=== PATIENT | female | born 1975 | race American Indian/Alaskan Native ===

== ENCOUNTER 2021-11-23 20:17 | Emergency (ER) | payer SELFPAY ==
[2021-11-24] MEDS ORDERED: IBUPROFEN 400 MG TAB PO ONE (00:14)
--- NOTE | 2021-11-24 00:15 | Emergency Department Report ---
ED General Adult HPI - General Chief complaint: Anxiety Stated complaint: Chest wall pain Time Seen by Provider: 11/24/21 00:00 Source: patient, RN notes reviewed Mode of arrival: Ambulatory Limitations: No Limitations - History of Present Illness Initial comments: The patient was evaluated in the emergency department for symptoms described in the history of present illness. He/she was evaluated in the context of the global COVID-19 pandemic, which necessitated consideration that the patient might be at risk for infection with the virus that causes COVID-19. Institutional protocols and algorithms that pertain to the evaluation of patients at risk for COVID-19 are in a state of rapid change based on information released by regulatory bodies including the CDC and federal and state organizations. These policies and algorithms were followed during the patient's care in the emergency department. Please note that these policies, procedures and recommendations changed on a rapid basis. The patient is a pleasant and cooperative 46-year-old female, who reports a distant history of hysterectomy, who reports that she is not , who has not delivered her given in the past 6 weeks, who also denies oral contraceptive use, and reports no DVT/PE risk factors. She recently relocated here from [place], and does not have a local primary care doctor. She also reports a history of anxiety. She presents to the ER today with complaints of anterior, left-sided chest wall pain, and inframammary pain, since 8:00 yesterday morning. The pain does not radiate to the back, arm or neck. There is no vomiting, diaphoresis or exertional shortness of breath. The pain increases with palpation, and decreases with rest. She denies additional injuries and complaints. She reports that she is COVID-19 vaccinated. Reports no significant [facility] family medical history -: days(s) Location: chest (As per history of present illness) Radiation: non-radiation Severity scale (0 -10): 2 Consistency: intermittent Improves with: none Worsens with: other (Palpation) - Related Data Allergies Allergy/AdvReac Type Severity Reaction Status Date / Time No Known Allergies Allergy Verified 11/23/21 21:17 ED Review of Systems ROS: Stated complaint: CHEST PAIN/ANXIETY/DIZZY Other details as noted in HPI Constitutional: denies: fever Eyes: denies: eye discharge ENT: denies: epistaxis Respiratory: denies: cough Cardiovascular: chest pain Gastrointestinal: denies: abdominal pain, nausea, vomiting Musculoskeletal: denies: back pain, myalgia Psychiatric: anxiety Hematological/Lymphatic: denies: easy bleeding ED Past Medical Hx - Past Medical History Hx Hypertension: Yes Additional medical history: Anxiety - Surgical History Past Surgical History?: Yes Additional Surgical History: Hyst Oct 2020 ED Physical Exam - General Limitations: No Limitations General appearance: alert, in no apparent distress - Head Head exam: Present: atraumatic, normocephalic - Eye Eye exam: Present: normal appearance, EOMI. Absent: nystagmus - ENT ENT exam: Present: normal exam, normal orophraynx, mucous membranes moist, normal external ear exam - Neck Neck exam: Present: normal inspection, full ROM. Absent: tenderness, meningismus - Respiratory Respiratory exam: Present: normal lung sounds bilaterally, chest wall tenderness (Chaperoned by Plastics Worker/medic Shawna), other (Patient provides oral consent for chest and breast examination). Absent: respiratory distress, wheezes, rales, rhonchi, stridor - Cardiovascular Cardiovascular Exam: Present: regular rate, normal rhythm, normal heart sounds. Absent: bradycardia, tachycardia, irregular rhythm, systolic murmur, diastolic murmur, rubs, gallop - GI/Abdominal GI/Abdominal exam: Present: soft. Absent: distended, tenderness, guarding, rebound, rigid, pulsatile mass - Extremities Exam Extremities exam: Present: normal inspection, full ROM, other (2+ pulses noted in the bilateral upper and lower extremities. There is no palpable cord. negative Homans sign. Muscular compartments are soft. The pelvis is stable.). Absent: pedal edema, calf tenderness - Back Exam Back exam: Present: normal inspection, full ROM. Absent: tenderness, CVA tenderness (R), CVA tenderness (L), paraspinal tenderness, vertebral tenderness - Neurological Exam Neurological exam: Present: alert, oriented X3, normal gait, other (No facial droop. Tongue midline. Extraocular movements intact bilaterally. Facial sensation intact to light touch in V1, V2, V3 distribution bilaterally. 5 and a 5 strength in 4 extremities. Sensation intact to light touch in 4 extremities.). Absent: motor sensory deficit - Psychiatric Psychiatric exam: Present: normal affect, normal mood - Skin Skin exam: Present: warm, dry, intact, normal color. Absent: rash ED Course Vital Signs 11/23/21 11/24/21 21:17 00:56 Temperature 98.4 F Pulse Rate 65 Respiratory 17 16 Rate Blood Pressure 167/99 [Right] O2 Sat by Pulse 100 Oximetry - Reevaluation(s) Reevaluation #1: 11/24/21 01:02 Differential diagnosis, including but not limited to: GERD, gastritis, costochondritis, hiatal hernia, anxiety, coronary artery dise ase Assessment and plan: 46-year-old female, who is not currently tachycardic, tachypneic or hypoxic, who denies DVT and pulmonary embolism risk factors, who is low risk by Wells criteria for pulmonary embolism, EKG not consistent with STEMI, PERC negative, troponin is negative x1 in the context of more than 8 hours of symptoms, as per the [employer] clinical policy, myocardial infarction may be ruled out with 1 set of troponin/cardiac enzymes. Patient has equal pulses in the upper and lower extremities, no pulsatile abdominal mass, and an unremarkable x-ray of the chest, therefore, aortic disease is very unlikely. Patient at low risk for major adverse cardiac event as per heart score. Patient has reproducible chest wall tenderness. We will treat her supportively and symptomatically. Counseled to follow-up with outpatient primary care and/or cardiology. Return precautions reviewed. X-ray the chest unremarkable. EKG not consistent with STEMI. Laboratory studies unremarkable 11/24/21 01:13 Patient resting comfortably in stretcher. Laboratory studies unremarkable. Patient suitable to follow-up as an outpatient. Return precautions reviewed ED Medical Decision Making - Lab Data Result diagrams: 11/24/21 00:25 11/24/21 00:25 Vital Signs 11/23/21 11/24/21 21:17 00:56 Temperature 98.4 F Pulse Rate 65 Respiratory 17 16 Rate Blood Pressure 167/99 [Right] O2 Sat by Pulse 100 Oximetry Lab Results 11/24/21 Range/Units 00:25 WBC 6.9 (4.5-11.0) K/mm3 RBC 4.36 (3.65-5.03) M/mm3 Hgb 13.2 (10.1-14.3) gm/dl Hct 40.8 (30.3-42.9) % MCV 94 (79-97) fl MCH 30 (28-32) pg MCHC 32 (30-34) % RDW 13.6 (13.2-15.2) % Plt Count 168 (140-440) K/mm3 Lab Results 11/24/21 11/24/21 11/24/21 Range/Units 00:25 00:25 00:25 WBC 6.9 (4.5-11.0) K/mm3 RBC 4.36 (3.65-5.03) M/mm3 Hgb 13.2 (10.1-14.3) gm/dl Hct 40.8 (30.3-42.9) % MCV 94 (79-97) fl MCH 30 (28-32) pg MCHC 32 (30-34) % RDW 13.6 (13.2-15.2) % Plt Count 168 (140-440) K/mm3 Sodium 138 (137-145) mmol/L Potassium 4.0 (3.6-5.0) mmol/L Chloride 103.3 (98-107) mmol/L Carbon Dioxide 23 (22-30) mmol/L Anion Gap 16 mmol/L BUN 17 (7-17) mg/dL Creatinine 0.8 (0.6-1.2) mg/dL Estimated GFR > 60 ml/min BUN/Creatinine Ratio 21 % Glucose 115 H (65-100) mg/dL Calcium 9.6 (8.4-10.2) mg/dL Magnesium 2.10 (1.7-2.3) mg/dL Troponin T < 0.010 (0.00-0.029) ng/mL TSH 1.540 (0.270-4.200) mlU/mL - EKG Data -: EKG Interpreted by Wi EKG shows normal: sinus rhythm Rate: normal - EKG Data 11/24/21 00:58 EKG #1 is interpreted at 21: 12 Motion artifact. Sinus rhythm, 69 bpm. Normal axis, normal P wave axis, intervals within normal limits, and high left ventricular voltage. Abnormal EKG. Not a STEMI. EKG #2 is interpreted 12: 26 Sinus rhythm, rate 74 bpm. There is a normal axis, normal P wave axis, normal intervals. There is high left ventricular voltage. Nonspecific T wave abnor malities. Abnormal EKG. Not a STEMI. - Radiology Data Radiology results: pending, report reviewed, image reviewed XR chest routine 2V INDICATION / CLINICAL INFORMATION: chest pain. COMPARISON: None available. FINDINGS: SUPPORT DEVICES: None. HEART /PULMONARY VASCULATURE: No significant abnormality. LUNGS / PLEURA: No significant pulmonary or pleural abnormality. No pneumothorax. ADDITIONAL FINDINGS: No significant additional findings. IMPRESSION: 1. No acute findings. Signer Name: Yonatan Lugo MD Signed: 11/23/2021 11:37 PM Workstation Name: [id number] Critical care attestation.: If time is entered above; I have spent that time in minutes in the direct care of this critically ill patient, excluding procedure time. ED Disposition Clinical Impression: Chest wall pain Disposition: HOME / SELF CARE / HOMELESS Is pt being admited?: No Does the pt Need Aspirin: No Condition: Good Instructions: Nonspecific Chest Pain, Adult, Costochondritis Additional Instructions: Please follow-up with an outpatient primary care doctor or shot blast equipment operator within the next 3 to 4 days. Patient may take [id number] ibuprofen and/or acetaminophen as needed for physical pain. Avoid consumption of heavy and spicy foods, alcohol Please return to the emergency room right away with new pain, worsened pain, migration of pain, projectile vomiting, change in mental status, confusion, inability tolerate liquid feeds, new, worsened or different symptoms not present on the initial emergency room evaluation Referrals: AME MCDONALD MD [Staff Physician] - 3-5 Days [facility] [Provider Group] - 3-5 Days Forms: Work/School Release Form(ED) Heart Score - HEART Score History: Slightly suspicious EKG: Non-specific Age: < 45 Risk factors: No known risk factors Troponin: < normal limit HEART Score: 1 - EKG Read Time Time EKG Completed: 12:26 EKG Read Time: 12:26 - Critical Actions Critical Actions: 0-3 pts:0.9-1.7%risk of adverse cardiac event.Candidate for steve cain
[2021-11-24 00:40] LABS: Hematocrit 40.8 % (30.3-42.9); Hemoglobin 13.2 gm/dl (10.1-14.3); Mean Corpuscular HGB Conc 32 % (30-34); Mean Corpuscular Volume 94 fl (79-97); Platelet Count 168 K/mm3 (140-440); Red Blood Count 4.36 M/mm3 (3.65-5.03); Red Cell Distribution Width 13.6 % (13.2-15.2)
--- NOTE | 2021-11-24 00:41 | XRay Report ---
XR chest routine 2V INDICATION / CLINICAL INFORMATION: chest pain. COMPARISON: None available. FINDINGS: SUPPORT DEVICES: None. HEART /PULMONARY VASCULATURE: No significant abnormality. LUNGS / PLEURA: No significant pulmonary or pleural abnormality. No pneumothorax. ADDITIONAL FINDINGS: No significant additional findings. IMPRESSION: 1. No acute findings. Signer Name: Yonatan Lugo MD Signed: 11/24/2021 12:37 AM Workstation Name: [id number]
[2021-11-24 00:59] LABS: BUN/Creatinine Ratio 21; Blood Urea Nitrogen 17 mg/dL (7-17); Calcium 9.6 mg/dL (8.4-10.2); Hemolysis Index 12
[2021-11-24 01:41] VITALS: BP 153/102
--- NOTE | 2021-11-24 10:07 | Electrocardiograph Report ---
[facility] Test Date: 2021-11-23 Test Time: 21:12:26 Pat Name: ROYAL GABRIEL Department: Room: Gender: F Clinical Dental Technician: [id number] : 1975 Requested By: KOLE NANCE Order Number: [id number] Reading MD: Toni Graff Measurements Intervals [place] Rate: 69 P: CA: QRS: 46 QRSD: 84 T: 31 QT: 383 QTc: 412 Interpretive Statements Sinus rhythm Baseline artifacts noted. No previous ECG available for comparison Electronically Signed On 11-24-2021 10:07:27 EST by Toni Graff
--- NOTE | 2021-11-24 10:11 | Electrocardiograph Report ---
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 Electronically Signed On 11-24-2021 10:11:28 EST by Toni Graff
== END 2021-11-24 02:08 | disposition home or self-care (01) ==
LOC: ED 20:17
DX: R07.89 Other chest pain (principal); I10 Essential (primary) hypertension; F41.9 Anxiety disorder, unspecified; Z79.899 Other long term (current) drug therapy
CPT/HCPCS: 36415; 71046; 80048; 83735; 84443; 84484; 85027; 93005; 93010; 99284

== ENCOUNTER 2021-11-28 19:54 | Emergency (ER) | payer OTHER ==
[2021-11-28] MEDS ORDERED: ASPIRIN 325 MG TAB PO ONE (20:07)
--- NOTE | 2021-11-28 20:46 | XRay Report ---
XR chest routine 2V INDICATION / CLINICAL INFORMATION: CHEST PAIN. COMPARISON: 11/24/2021 FINDINGS: SUPPORT DEVICES: None. HEART /PULMONARY VASCULATURE: No significant abnormality. LUNGS / PLEURA: No significant pulmonary or pleural abnormality. No pneumothorax. ADDITIONAL FINDINGS: No significant additional findings. IMPRESSION: 1. No acute findings. Signer Name: Yonatan Lugo MD Signed: 11/28/2021 8:42 PM Workstation Name: [id number]
[2021-11-28 20:58] LABS: Alanine Aminotransferase 12 units/L (7-56); Albumin 4.2 g/dL (3.9-5); BUN/Creatinine Ratio 18; Basophils % (Auto) 0.8 % (0.0-1.8); Blood Urea Nitrogen 14 mg/dL (7-17); Calcium 9.1 mg/dL (8.4-10.2); Eosinophils # (Auto) 0.2 K/mm3 (0.0-0.4); Eosinophils % (Auto) 3.8 % (0.0-4.3); Hematocrit 42.9 % (30.3-42.9); Hemoglobin 13.8 gm/dl (10.1-14.3); Hemolysis Index 9; Lymphocytes % (Auto) 36.7 % (13.4-35.0); Mean Corpuscular HGB Conc 32 % (30-34); Mean Corpuscular Volume 93 fl (79-97); Monocytes # (Auto) 0.4 K/mm3 (0.0-0.8); Platelet Count 165 K/mm3 (140-440); Red Blood Count 4.59 M/mm3 (3.65-5.03); Red Cell Distribution Width 13.5 % (13.2-15.2)
[2021-11-28] MEDS ORDERED: diazePAM 5 MG TAB PO ONE (22:13)
--- NOTE | 2021-11-29 02:24 | Emergency Department Report ---
ED Chest Pain HPI - General Chief Complaint: Chest Pain Stated Complaint: CHEST PAIN YENNY Source: patient Mode of arrival: Ambulatory Limitations: No Limitations - History of Present Illness Initial Comments: Patient is a 46-year-old -[place] female with a history of hypertension and anxiety who presents to the ED with complaint of acute onset persistent left-sided chest pain intermittently for the last 3 days. Patient states that in the last 12 hours, the chest pain has been more persistent diffusely with chest tightness and tingling and numbness sensation in upper extremities bilaterally. Patient denies shortness of breath, fever, chills, cough, nausea and vomiting, abdominal pain, back pain, traumatic injury or heavy lifting. MD Complaint: chest pain (left-sided), other (tingling bilateral upper extremities) -: Sudden, days(s) (3) Onset: awoke with symptoms Pain Location: left chest Pain Radiation: RUE, LUE Severity: moderate Severity scale (0 -10): 6 Quality: aching, dull Consistency: constant Improves With: nothing Worsens With: palpation re: denies: nausea, vomting, diaphoresis, dyspnea, sense of impending doom Other Symptoms: denies: cough, fever, syncope, rash, acid taste in mouth, leg swelling, palpitations, burping, other Treatments Prior to Arrival: none - Related Data On Oral Contraceptives: No Previous Rx's Medication Instructions Recorded Last Taken Type Naproxen 500 mg PO Q12H PRN #30 tab 11/29/21 Unknown Rx hydrOXYzine PAMOATE [Vistaril] 50 mg PO Q12H PRN #30 capsule 11/29/21 Unknown Rx Allergies Allergy/AdvReac Type Severity Reaction Status Date / Time No Known Allergies Allergy Verified 11/23/21 21:17 Heart Score - HEART Score History: Slightly suspicious EKG: Normal Age: < 45 Risk factors: 1-2 risk factors Troponin: < normal limit HEART Score: 1 - EKG Read Time Time EKG Completed: 20:04 EKG Read Time: 20:05 - Critical Actions Critical Actions: 0-3 pts:0.9-1.7%risk of adverse cardiac event.Candidate for discharge ED Review of Systems ROS: Stated complaint: CHEST PAIN YENNY Other details as noted in HPI Constitutional: denies: chills, fever Eyes: denies: eye pain, eye discharge, vision change ENT: denies: ear pain, throat pain Respiratory: denies: cough, shortness of breath, wheezing Cardiovascular: chest pain (Left-sided chest pain). denies: palpitations Endocrine: no symptoms reported Gastrointestinal: denies: abdominal pain, nausea, vomiting, diarrhea Genitourinary: denies: urgency, dysuria, discharge Musculoskeletal: arthralgia (Bilateral upper extremity tingling sensation). denies: back pain, joint swelling Skin: denies: rash, lesions Neurological: denies: headache, weakness, paresthesias Psychiatric: anxiety. denies: depression Hematological/Lymphatic: denies: easy bleeding, easy bruising ED Past Medical Hx - Past Medical History Previous Medical History?: Yes Hx Hypertension: Yes Additional medical history: Anxiety - Surgical History Additional Surgical History: Hyst Oct 2020 - Social History Smoking Status: Current Every Day Smoker Substance Use Type: None - Medications Home Medications: Home Medications Medication Instructions Recorded Confirmed Last Taken Type Naproxen 500 mg PO Q12H PRN #30 tab 11/29/21 Unknown Rx hydrOXYzine PAMOATE [Vistaril] 50 mg PO Q12H PRN #30 capsule 11/29/21 Unknown Rx ED Physical Exam - General Limitations: No Limitations General appearance: alert, in no apparent distress - Head Head exam: Present: atraumatic, normocephalic, normal inspection - Eye Eye exam: Present: normal appearance, PERRL, EOMI Pupils: Present: normal accommodation - ENT ENT exam: Present: normal exam, normal orophraynx, mucous membranes moist, TM's normal bilaterally, normal external ear exam - Neck Neck exam: Present: normal inspection, full ROM. Absent: tenderness - Respiratory Respiratory exam: Present: normal lung sounds bilaterally, chest wall tenderness (Palpable reproducible left-sided chest wall tenderness). Absent: respiratory distress, wheezes, rales, rhonchi, stridor, accessory muscle use, decreased breath sounds, prolonged expiratory - Cardiovascular Cardiovascular Exam: Present: regular rate, normal rhythm, normal heart sounds. Absent: systolic murmur, diastolic murmur, rubs, gallop - GI/Abdominal GI/Abdominal exam: Present: soft, normal bowel sounds. Absent: tenderness, guarding, hyperactive bowel sounds, hypoactive bowel sounds, organomegaly - Extremities Exam Extremities exam: Present: normal inspection, full ROM, normal capillary refill. Absent: tenderness - Back Exam Back exam: Present: normal inspection, full ROM. Absent: tenderness, CVA tenderness (R), CVA tenderness (L), muscle spasm, paraspinal tenderness, vertebral tenderness - Neurological Exam Neurological exam: Present: alert, oriented X3, CN II-XII intact, normal gait, reflexes normal - Psychiatric Psychiatric exam: Present: normal affect, normal mood, anxious - Skin Skin exam: Present: warm, dry, intact, normal color. Absent: rash ED Course Vital Signs 11/28/21 20:10 Temperature 98.6 F Pulse Rate 75 Respiratory 18 Rate Blood Pressure 176/112 [Right] O2 Sat by Pulse 98 Oximetry PINO score - Pino Score Age > 65: (0) No Aspirin use within the Past 7 Days: (0) No 3 or more CAD Risk Factors: (0) No 2 or more Angina events in past 24 hrs: (0) No Known CAD with more than 50% Stenosis: (0) No Elevated Cardiac Markers: (0) No ST Deviation Greater than 0.5mm: (0) No PINO Score: 0 ED Medical Decision Making - Lab Data Result diagrams: 11/28/21 20:15 11/28/21 20:15 - EKG Data EKG shows normal: sinus rhythm Rate: normal - EKG Data Interpretation: normal EKG 11/29/21 02:51 EKG shows normal sinus rhythm with a ventricular rate of [address] or T wave abnormalities, or pathological Q waves. - Radiology Data Radiology results: report reviewed, [place] [address] XRay Report Signed Patient: ROYAL GABRIEL MR#: [id number] : 1975 Acct:[id number] Age/Sex: 46 / F ADM Date: 11/28/21 Loc: ED Attending Dr: Ordering Physician: JAMIE HO MD Date of Service: 11/28/21 Procedure(s): XR chest routine 2V Accession Number(s): [id number] cc: ED MD [place] Fluoro Time In Minutes: XR chest routine 2V INDICATION / CLINICAL INFORMATION: CHEST PAIN. COMPARISON: 11/24/2021 FINDINGS: SUPPORT DEVICES: None. HEART /PULMONARY VASCULATURE: No significant abnormality. LUNGS / PLEURA: No significant pulmonary or pleural abnormality. No pneumothorax. ADDITIONAL FINDINGS: No significant additional findings. IMPRESSION: 1. No acute findings. Signer Name: Devin Lugo MD Signed: 11/28/2021 8:42 PM Workstation Name: [id number] Transcribed By: JAMES Dictated By: DEVIN LUGO MD Electronically Authenticated By: DEVIN LUGO MD Signed Date/Time: 11/28/212041 DD/ 41 TD/TT: - Medical Decision Making This is a 46-year-old -[place] female with a history of hypertension and anxiety who presents to the ED with complaint of acute onset persistent left- sided chest pain intermittently for the last 3 days. Patient states that in the last 12 hours, the chest pain has been more persistent diffusely with chest tightness and tingling and numbness sensation in upper extremities bilaterally. In the ED, patient is alert and oriented x3 and is not in any distress. Patient is however anxious during the physical exam. EKG shows normal sinus rhythm with a ventricular rate of 78 bpm, and no ST or T wave abnormalities or pathological Q waves. Chest x-ray showed no acute cardiopulmonary abnormalities or pneumonitis. Lab test results were reviewed and are all nonactionable including initial and 3-hour troponin levels. Patient's heart score is 1, and patient is PERC negative per Wells criteria. Patient was treated for pain in the ED and on reevaluation, patient's chest pain resolved with medication. Patient symptoms are likely due to costochondritis, muscle strain, anxiety although other differential diagnoses were considered including ACS, PE, GERD, pneumonia or dissection. Patient was therefore discharged home on medications and advised to follow-up with her primary care physician in 7 to 10 days for reevaluation. Patient was also given a referral to the ventilating equipment installer on-call Dr. Catalan for follow-up. Patient is advised return to the ED immediately if symptoms get worse. - Differential Diagnosis ACS; PE; pneumonia; costochondritis; anxiety; GERD; dissection Critical care attestation.: If time is entered above; I have spent that time in minutes in the direct care of this critically ill patient, excluding procedure time. ED Disposition Clinical Impression: Nonspecific chest pain, Acute costochondritis, Muscle strain of anterior chest wall, Anxiety as acute reaction to exceptional stress Disposition: HOME / SELF CARE / HOMELESS Is pt being admited?: No Does the pt Need Aspirin: No Condition: Stable Instructions: Generalized Anxiety Disorder, Adult, Costochondritis, Easy -to-Read, Chest Wall Pain, [id number], Nonspecific Chest Pain, Adult, [id number] Additional Instructions: All lab test results were reviewed and are all nonactionable. Chest x-ray showed no acute cardiopulmonary abnormalities or pneumonitis. Patient the history and physical exam findings, lab test results and imaging reports, your symptoms are likely due to muscle strain or costochondritis of your chest wall, worsened by your anxiety. Therefore take medications with food, drink plenty of fluids and follow-up with your primary care physician in 5 to 7 days for r eevaluation. Consider following up with a ventilating equipment installer Dr. Catalan in the next 5 to 7 days for reevaluation. Return to the ED immediately if symptoms get worse. Prescriptions: Naproxen 500 mg PO Q12H PRN #30 tab PRN Reason: Pain , Severe (7-10) hydrOXYzine PAMOATE [Vistaril] 50 mg PO Q12H PRN #30 capsule PRN Reason: Anxiety Referrals: PAO CANO MD [Staff Physician] - 3-5 Days TREE CATALAN MD [Staff Physician] - 3-5 Days Time of Disposition: 02:22 Print Language: LATVIAN
[2021-11-29 03:37] VITALS: BP 165/96
--- NOTE | 2021-11-30 13:15 | Electrocardiograph Report ---
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
== END 2021-11-29 03:30 | disposition home or self-care (01) ==
LOC: ED 19:54
DX: S29.011D Strain of muscle and tendon of front wall of thorax, subsequent encounter (principal); S21.109D Unspecified open wound of unspecified front wall of thorax without penetration into thoracic cavity, subsequent encounter; R07.9 Chest pain, unspecified; M94.0 Chondrocostal junction syndrome [Tietze]; F43.9 Reaction to severe stress, unspecified; I10 Essential (primary) hypertension; F17.200 Nicotine dependence, unspecified, uncomplicated; X58.XXXA Exposure to other specified factors, initial encounter; Y93.89 Activity, other specified; Y92.89 Other specified places as the place of occurrence of the external cause; Y99.8 Other external cause status
CPT/HCPCS: 36415; 71046; 80053; 84484; 85025; 93005; 93010; 99284

== ENCOUNTER 2021-11-30 06:36 | Emergency (ER) | payer OTHER ==
[2021-11-30] MEDS ORDERED: cloNIDine 0.2 MG TAB PO ONE (07:02)
--- NOTE | 2021-11-30 07:04 | Emergency Department Report ---
ED General Adult HPI - General Chief complaint: Chest Pain Stated complaint: CHEST PAIN Time Seen by Provider: 11/30/21 07:00 Source: patient, EMS Mode of arrival: Stretcher Limitations: No Limitations - Related Data Allergies Allergy/AdvReac Type Severity Reaction Status Date / Time No Known Allergies Allergy Verified 11/23/21 21:17 ED Review of Systems ROS: Stated complaint: CHEST PAIN Other details as noted in HPI Comment: All other systems reviewed and negative ED Past Medical Hx - Past Medical History Previous Medical History?: Yes Hx Hypertension: Yes Additional medical history: Anxiety - Surgical History Past Surgical History?: Yes Additional Surgical History: Hyst Oct 2020 - Family History Family history: no significant - Social History Smoking Status: Current Every Day Smoker Substance Use Type: None ED Physical Exam - General Limitations: No Limitations General appearance: alert, in no apparent distress - Head Head exam: Present: atraumatic, normocephalic - Eye Eye exam: Present: normal appearance - ENT ENT exam: Present: mucous membranes moist - Neck Neck exam: Present: normal inspection - Respiratory Respiratory exam: Present: normal lung sounds bilaterally. Absent: respiratory distress - Cardiovascular Cardiovascular Exam: Present: regular rate, normal rhythm. Absent: systolic murmur, diastolic murmur, rubs, gallop - GI/Abdominal GI/Abdominal exam: Present: soft, normal bowel sounds - Extremities Exam Extremities exam: Present: normal inspection - Back Exam Back exam: Present: normal inspection - Neurological Exam Neurological exam: Present: alert, oriented X3 - Psychiatric Psychiatric exam: Present: normal affect, normal mood - Skin Skin exam: Present: warm, dry, intact, normal color. Absent: rash ED Course Vital Signs 11/30/21 11/30/21 11/30/21 06:40 07:22 07:23 Temperature 98 F Pulse Rate 78 61 61 Respiratory 16 16 Rate Blood Pressure 133/77 Blood Pressure 186/124 133/77 [Right] O2 Sat by Pulse 98 Oximetry ED Medical Decision Making - EKG Data EKG shows normal: sinus rhythm Rate: normal - EKG Data When compared to previous EKG there are: no significant change Interpretation: no acute changes - Medical Decision Making Vital Signs 11/30/21 11/30/21 11/30/21 06:40 07:22 07:23 Temperature 98 F Pulse Rate 78 61 61 Respiratory 16 16 Rate Blood Pressure 133/77 Blood Pressure 186/124 133/77 [Right] O2 Sat by Pulse 98 Oximetry - Differential Diagnosis a/c htn; anxiety Critical care attestation.: If time is entered above; I have spent that time in minutes in the direct care of this critically ill patient, excluding procedure time. ED Disposition Clinical Impression: Chronic hypertension, Nonadherence to medical treatment, Anxiety Obesity Qualifiers: Obesity type: due to excess calories Disposition: 01 HOME / SELF CARE / HOMELESS Is pt being admited?: No Does the pt Need Aspirin: No Condition: Stable Instructions: Hypertension, Adult, [id number], Hypertension (ED) Additional Instructions: continue home meds follow up with pcp natali another referral below Referrals: PAO CANO MD [Staff Physician] - 3-5 Days Time of Disposition: 07:07
[2021-11-30 07:22] VITALS: BP 133/77
--- NOTE | 2021-11-30 13:30 | Electrocardiograph Report ---
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
== END 2021-11-30 07:57 | disposition home or self-care (01) ==
LOC: ED 06:36
DX: I10 Essential (primary) hypertension (principal); Z91.19 Patient's noncompliance with other medical treatment and regimen; F41.9 Anxiety disorder, unspecified; E66.9 Obesity, unspecified
CPT/HCPCS: 93005; 93010; 99283; J3490

== ENCOUNTER 2022-01-21 11:07 | Emergency (ER) | payer OTHER ==
[2022-01-21] MEDS ORDERED: IBUPROFEN 800 MG TAB PO ONE (12:25)
[2022-01-21 12:42] VITALS: BP 143/100
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
== END 2022-01-21 15:25 | disposition home or self-care (01) ==
LOC: ED 11:07
DX: S13.4XXA Sprain of ligaments of cervical spine, initial encounter (principal); S39.012A Strain of muscle, fascia and tendon of lower back, initial encounter; I10 Essential (primary) hypertension; F41.9 Anxiety disorder, unspecified; F17.200 Nicotine dependence, unspecified, uncomplicated; Z79.899 Other long term (current) drug therapy; V89.2XXA Person injured in unspecified motor-vehicle accident, traffic, initial encounter; Y93.89 Activity, other specified; Y92.488 Other paved roadways as the place of occurrence of the external cause; Y99.8 Other external cause status
CPT/HCPCS: 72040; 72100; 99283